=== PATIENT | male | born 1995 | race Two or more races ===

== ENCOUNTER 2025-03-25 08:59 | Emergency (ER) | payer OTHER ==
[~2025-03-25] VITALS: Ht 124.5 cm; Wt 36.3 kg
[2025-03-25] MEDS ORDERED: KETOROLAC TROMETHAMINE 30 MG VIAL ONE (09:43)
[2025-03-25] MEDS ORDERED: CEFTRIAXONE SODIUM 1,000 MG VIAL ONE (09:43)
[2025-03-25] MEDS ORDERED: FAMOTIDINE/PF 20 MG/2 ML VIAL ONE (09:44)
[2025-03-25] MEDS ORDERED: 0.9 % SODIUM CHLORIDE 1,000 ML IV ONE (09:45)
[2025-03-25] MEDS ORDERED: FAMOtidine 10 MG/ML (4ML VIAL) IV ONE (09:45)
[2025-03-25] MEDS ORDERED: CEFTRIAXONE SODIUM 1,000 MG VIAL IV ONE (09:45)
[2025-03-25] MEDS ORDERED: KETOROLAC TROMETHAMINE 30 MG VIAL IV ONE (09:45)
[2025-03-25 10:19] LABS: BASO % 0.3 % (0.1-1.2); EOS # 0.01 (0.04-0.54); EOS % 0.1 % (0.7-7.0); HEMATOCRIT 40.5 % (40.1-51.0); HEMOGLOBIN 13.9 g/dL (13.7-17.5); LYMPH # 0.87 (1.18-3.74); LYMPH % 4.8 % (19.3-53.1); MONO # 1.29 (0.24-0.82); MONO % 7.1 % (4.7-12.5); NEUT # 15.84 (1.56-6.13); NEUT % 87.1 % (34.0-71.1); PLATELET COUNT 326 K/uL (163-369); RED BLOOD COUNT 4.64 M/uL (4.63-6.08); RED CELL DISTRIBUTION WIDTH 12.7 % (11.6-14.4)
[2025-03-25 11:48] LABS: URINE APPEARANCE Turbid; URINE BILIRRUBIN Negative (NEGATIVE); URINE BLOOD Moderate; URINE COLOR Yellow; URINE GLUCOSE Negative (NEGATIVE); URINE KETONE Negative (NEGATIVE); URINE LEUKOCYTE Large; URINE NITRATE Negative; URINE PROTEIN 30 (NEGATIVE); URINE UROBILINOGEN 0.2 E.U./dl
[2025-03-25 11:55] LABS: URINE EPITHELIAL CELLS 1.7 uL (0.0-38.8); URINE WBC 5364.7 uL (0.0-23.2)
[2025-03-25 12:20] LABS: URINE BACTERIA > 9821.5 uL (0.0-1933); URINE CAST 0.14 uL (0.0-1.40)
[2025-03-25 12:29] LABS: BILIRUBIN TOTAL 0.79 mg/dL (0.3-1.2); CALCIUM 8.4 mg/dL (8.5-10.1); CREATININE SERUM 0.42 mg/dL (0.70-1.30); GFR 235.64; GLOBULINA 3.6 G/DL (2.4-3.5); POTASSIUM 3.5 mEq/L (3.5-5.1); TOTAL PROTEIN 6.6 gm/dL (6.4-8.2)
[2025-03-25 12:39] LABS: INR 1.14; PARTIAL THROMBOPLASTIN TIME 30.6 SECONDS (22.0-34.0); PROTHROMBIN TIME 12.3 SECONDS (9.0-11.5)
[2025-03-25] MEDS ORDERED: PROTONIX40 MG PO (15:28)
[2025-03-25] MEDS ORDERED: TAMS0.4C PO (15:28)
[2025-03-25] MEDS ORDERED: BACTRIM DS TAB1 EACH PO (15:28)
[2025-03-25] MEDS ORDERED: NORFLEX100MG PO (15:28)
[2025-03-25] MEDS ORDERED: KETOROLAC TROMETHAMINE 60 MG VIAL IM ONE ×2 (15:30→15:35)
== END 2025-03-25 16:54 | disposition home or self-care (01) ==
LOC: ER 09:20
PROVIDERS: General Practice
DX: R10.31 Right lower quadrant pain (principal); G91.8 Other hydrocephalus; Z91.040 Latex allergy status
CPT/HCPCS: 36415; 74177; 96365; 96372; 99284; J0696; J1885; J3490; J7030; Q9965